=== PATIENT | female | born 2000 | race Caucasian/White ===

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

== ENCOUNTER 2024-05-01 11:50 | Emergency (ER) | payer SELFPAY ==
[~2024-05-01] VITALS: Ht 162.6 cm; Wt 60.9 kg
[2024-05-01 11:52] VITALS: BP 147/87; PULSE 82; RESP 22; TEMP 97.1; O2SAT 99
== END 2024-05-01 16:13 | disposition left against medical advice (07) ==
LOC: ER 11:50
DX: K92.0 Hematemesis (principal); R42 Dizziness and giddiness; Z53.21 Procedure and treatment not carried out due to patient leaving prior to being seen by health care provider

== ENCOUNTER 2024-11-15 08:43 | Emergency (ER) | payer MEDICAID ==
[~2024-11-15] VITALS: Ht 162.6 cm; Wt 63.9 kg
[2024-11-15 08:45] VITALS: BP 123/84; PULSE 107; RESP 16; O2SAT 99
--- NOTE | 2024-11-15 09:11 | Physician Documentation ---
History of Present Illness ~ General Chief Complaint: See Chief Complaint Stated Complaint: REQUESTING BLOOD TEST Time Seen by MD: 08:50 History of Present Illness Initial Comments This is a 24-year-old female who comes in with a request for a blood test. She states that she is late on her period, they typically began at the beginning of the month, and that when she took a urine test they positive line was very faint. She has no other somatic complaints whatsoever. Prior to this test she was She vapes. She uses marijuana. Medication Reconciliation Allergies: Coded Allergies: No Known Allergies (Unverified , 12/23/20) Past Medical History Past Medical History: No Pertinent History Past Surgical History: no surgical history Alcohol Use: Occasionally Drug Use: marijuana Lives with: Family Lives In: Home Review of Systems ROS 10 point review of systems was performed and unless noted above in HPI is negative for acute process/complaint. Physical Exam Physical Exam Vital Signs: Temperature: 98.0, Source: Temporal, Heart Rate: 107, Respiratory Rate: 16, BP: 123/84, Pulse Oximetry: 99, Weight: 63.900 Oxygen Flow Rate: 0 Physical Exam Physical examination: GENERAL: Awake, alert, oriented, GCS 15, no apparent distress, non-toxic appearing, answers questions, follows commands appropriately. HEENT: Atraumatic, normocephalic, pupils equal, extraocular muscles intact Active gross movements, sclerae anicteric, mucus membranes moist, no stridor. NECK: Midline, no JVD CARDIOVASCULAR: Good skin perfusion without evidence of pallor, mottling. PULMONARY: Nonlabored, symmetric chest rise, no audible wheezing, no accessory muscle use, no respiratory distress, speaking in full sentences. GASTROINTESTINAL: Not distended. NEUROLOGIC: Lucid with normal mental status. Normal facial symmetry. Moves all extremities symmetrically and with purpose. No truncal ataxia. Speech is fluid without evidence of dysarthria or aphasia, no focal deficits appreciated. EXTREMITIES: Acute deformities Skin: warm, dry PSYCHIATRIC: Normal affect, normal insight, normal concentration. Focused exam: [] Progress Results/Orders Results/Orders Completed Orders - HONEY OAKLEY DO Hcg Serum Qt (11/15/24 08:50) Vital Signs 11/15/24 08:45 Temp 98.0 Pulse 107 Resp 16 B/P (MAP) 123/84 Pulse Ox 99 O2 Flow Rate 0 Laboratory Tests Test 11/15/24 09:26 HCG Beta Subunit 127 Medical Decision Making Findings Facility Status: ED Holds, [facility] process The plan was discussed with the patient, who demonstrates clear understanding of the plan and is in agreement with the plan unless otherwise noted in the chart. All questions have been answered, all concerns were addressed unless otherwise documented. I was available throughout their ED stay for frequent reassessment and question s. Differential Diagnoses (considered and possible or likely): [1st trimester , false positive test, ectopic , less likely miscarriage] ??Differential Diagnoses (considered and unlikely, not requiring evaluation currently): [See above] MDM Data Please see [facility] for the following: Independent Historians and external Records Review. Historian: [Patient] Independent Historians: ?[None] Medication Management: [Reviewed medication list] Social History and determinants: [Reviewed] Please see the body of the note for the following: Any independent interpretations of ECG, imaging studies. All vitals signs/haemodynamics, ordered tests were independently reviewed and interpreted by myself. Nursing triage complaint and vitals reviewed, additional nursing notes were reviewed as available and I agree unless otherwise noted or documented in contradiction in the chart Vital Signs: Independently reviewed Labs: Independently interpreted Imaging: Independently interpreted Old Medical Records: Independently reviewed, see HPI for relevant summary and information Pulse Oximetry: [100%] interpreted as [normal on room air] by me Additionally notably showing: [Hemodynamically stable. Beta hCG is positive at 127.] Tests considered but not ordered include: [Too early for imaging at this time, no pelvic pain, no vaginal bleeding] Social Determinants of Health Impact: Patient was evaluated in [facility], or [facility] [place] to healthcare due to below par ratio of patient to medical providers. [] Comorbid Conditions Impacting Present Evaluation and Care/Treatment: [None] Management Discussions with other Healthcare Providers: [] Treatment and Disposition Medication Management (Given or considered): []. See EMR for details Consideration for Hospitalization/Escalation/Deescalation of Care: Admission for observation has been considered, [however the patient is able to tolerate p.o., their symptoms are controlled, they are able to rely on oral medications, and their chief complaint/diagnosis can be managed on outpatient basis.] ?ED Course:?[No clinical deterioration. Patient does not want any further workup. She was advised to return to emergency department for a repeat beta hCG to make sure that it rises appropriately and this is an intrauterine if she desires to keep this . I] ?Shared decision making:?[Patient is hemodynamically stable for discharge home with follow with their primary care provider. [ ] Specific and cautious return precautions provided and discussed with full understanding. Any incidental findings were also discussed and follow up recommendations given. [] All questions answered. Patient/family were able to verbalize back return precautions. Patient/family agree to plan. Copies of imaging and laboratory studies were provided.] Code status:?FULL Please see the full Electronic Medical Record for full details of nursing documentation, medications list, other records of complete past medical history and conditions, vital signs, laboratory studies, and any radiologic study interpretations by radiologists. Portions of this note were completed using [employer] dictation software and as a result there may exist minor errors in spelling. I have reviewed elements of past family and social history and agree as included in note. Departure Disposition: 01 HOME / SELF CARE / HOMELESS Impression: Primary Impression: Positive blood test Condition: Stable Discharge Instructions: First Trimester of Additional Instructions: Your beta hCG test is positive at 127. This can indicate early . This can also indicate ectopic . You need to return to emergency department in 48 hours to repeat the blood test. It is too early to perform an ultrasound. Referrals: NO PRIMARY CARE PROVIDER (PCP) Education Educated: Patient Educated regarding: diagnosis, treatment, prognosis, need for follow up Signature Scribe Signature: No scribe Attestation: This note accurately reflects clinical decisions, work performed by myself, DO CELE Brady NICHOLAS M DO November 15, 2024 09:11
[2024-11-15 10:23] VITALS: TEMP 98
== END 2024-11-15 10:26 | disposition home or self-care (01) ==
LOC: ER 08:43
DX: Z32.01 Encounter for pregnancy test, result positive (principal); F12.90 Cannabis use, unspecified, uncomplicated; Z72.89 Other problems related to lifestyle
CPT/HCPCS: 36415; 84702; 99283